=== PATIENT | male | born 1965 | race Caucasian/White ===

== ENCOUNTER 2021-01-12 06:41 | Day surgery (SDC) | payer MEDICAID ==
[~2021-01-12] VITALS: Ht 172.7 cm; Wt 95.8 kg
[2021-01-12] VITALS (12 sets, daily range): BP systolic 88–120; BP diastolic 51–79
[~2021-01-12 06:41] MED LIST: ASPI-611 PO; ATOR20TA66 PO; METO-395 PO; OMEP-50 PO; TICA90TA PO
[2021-01-12] MEDS ORDERED: EZET10TA48 PO (07:08)
[2021-01-12] MEDS ORDERED: HYDR12.55 PO (07:08)
[2021-01-12] MEDS ORDERED: VALS40TA11 PO (07:08)
[2021-01-12] MEDS ORDERED: METO-384 PO (07:08)
[2021-01-12] MEDS ORDERED: TICA90TA2 PO (07:08)
[2021-01-12] MEDS ORDERED: ATOR-2 PO (07:09)
[2021-01-12 07:21] LABS: BASOPHILS % (AUTO) 0.9 % (0-1); EOSINOPHILS # (AUTO) 0.2 X10'3 (0-0.9); EOSINOPHILS % (AUTO) 3.5 % (0-6); HEMOGLOBIN 14.8 g/dl (14.0-17.9); LYMPHOCYTES # (AUTO) 1.3 X10'3 (1.1-4.8); LYMPHOCYTES % (AUTO) 26.3 % (21-51); MEAN CORPUSCULAR HEMOGLOBIN 31.1 PG (27.0-31.0); MEAN CORPUSCULAR HGB CONC 33.6 g/dL (33.0-36.5); MEAN CORPUSCULAR VOLUME 92.7 FL (78-98); MEAN PLATELET VOLUME 7.7 FL (7.4-10.4); MONOCYTES # (AUTO) 0.6 X10'3 (0-0.9); MONOCYTES % (AUTO) 11.3 % (2-12); NEUTROPHILS # (AUTO) 2.9 X10'3 (1.8-7.7); PLATELET COUNT 220 X10'3 (140-440); RED BLOOD COUNT 4.75 X10'6 (4.70-6.10); RED CELL DISTRIBUTION WIDTH 13.1 % (11.5-14.5); WHITE BLOOD COUNT 5.1 X10'3 (4.5-11.0)
[2021-01-12] MEDS ORDERED: normal saline 1,000 ML IV SCH (07:25)
[2021-01-12] MEDS ORDERED: diphenhydrAMINE 25mg capsule PO PRN (07:25)
[2021-01-12] MEDS ORDERED: LORazepam 0.5 MG tablet PO PRN (07:25)
[2021-01-12 07:33] LABS: ALBUMIN 3.6 G/DL (3.4-5.0); ANION GAP 9 (8-16); BLOOD UREA NITROGEN 24 MG/DL (7-18); BUN/CREATININE RATIO 21.8 (5.4-32.0); CALCIUM 9.1 MG/DL (8.5-10.1); CHLORIDE 105 MMOL/L (99-107); GLUCOSE 93 MG/DL (70-104); POTASSIUM 3.9 MMOL/L (3.5-5.1); SODIUM 141 MMOL/L (135-145); eGFR 70 ML/MIN
[2021-01-12 07:46] LABS: PARTIAL THROMBOPLASTIN TIME 24 SECONDS (22-32)
[2021-01-12] MEDS ORDERED: midazolam 1 mg/ML 2ml injection ONE (09:09)
[2021-01-12] MEDS ORDERED: fentaNYL/PF 50MCG/1 ML 2ML syringe ONE (09:09)
[2021-01-12] MEDS ORDERED: heparin 1,000unit/ml 10ml vial 10 ML ONE (09:10)
[2021-01-12] MEDS ORDERED: LIDOcaine 1% (10mg/ml)w/preservative injection 20ml MDV ONE (09:10)
[2021-01-12] MEDS ORDERED: IOHEXOL 350 MG/ML INFUS..BTL 75ML IV ONE (09:10)
[2021-01-12] MEDS ORDERED: nitroGLYCERIN-Tridil 50MG/D5W 250 ML IV ONE (09:10)
[2021-01-12] MEDS ORDERED: iohexol 350MG/ML 100ml bottle IV ONE ×2 (09:10→09:55)
--- NOTE | 2021-01-12 10:23 | NUR ---
Pt back in room, site stable, drsg CD&I. Will continue to monitor.
--- NOTE | 2021-01-12 12:00 | NUR ---
Pt ate 100% of lunch tray. Will continue to monitor.
== END 2021-01-12 17:10 | disposition home or self-care (01) ==
LOC: SSTAY O 06:41
PROVIDERS: ATTEND Internal Medicine Cardiovascular Disease
DX: R94.39 Abnormal result of other cardiovascular function study (principal); R53.83 Other fatigue; I25.10 Atherosclerotic heart disease of native coronary artery without angina pectoris; I25.82 Chronic total occlusion of coronary artery; I10 Essential (primary) hypertension; E78.5 Hyperlipidemia, unspecified; Z79.899 Other long term (current) drug therapy; Z95.5 Presence of coronary angioplasty implant and graft; Z79.82 Long term (current) use of aspirin; Z79.01 Long term (current) use of anticoagulants; Z80.9 Family history of malignant neoplasm, unspecified; Z82.49 Family history of ischemic heart disease and other diseases of the circulatory system
CPT/HCPCS: 36415; 76937; 80048; 85025; 85610; 85730; 93005; 93459; 99152; 99153; C1760; C1769; C1894; J1644; J2001; J2250; J3010; J7030; Q0163; Q9967; A4620; A6258; J3490

== ENCOUNTER 2025-08-23 07:23 | Inpatient (IN) | payer BC, SELFPAY ==
[~2025-08-23] VITALS: Ht 175.3 cm; Wt 104.8 kg
[~2025-08-23 07:23] MED LIST changes: +ATOR-2 PO; -ATOR20TA66 PO; +EZET10TA80 PO; +HYDR12.55 PO; +METO-384 PO; -METO-395 PO; -OMEP-50 PO; +OMEP20CA16 PO; -TICA90TA PO; +TICA90TA2 PO; +VALS40TA11 PO
--- NOTE | 2025-08-23 07:48 | Physician Documentation ---
History of Present Illness ~ Chief Complaint: Chest Pain Stated Complaint: CHEST PAIN Time Seen by MD: 07:33 HPI 59-year-old male with a history of CAD with a CABG as well as multiple stents presenting with acute onset chest pain that started about an hour prior to arrival. Patient states that he got up this morning to do his morning routine and noticed that he is having pain in the left side of his chest. The pain is about seven to 8/10 on intensity and does not radiate. States that it feels a lot like chest pains that he has had in the past. He otherwise denies any nausea, vomiting, shortness of breath or any other associated symptoms. The pa in has continued and has not resolved. Medication Reconciliation Allergies: Coded Allergies: No Known Allergies (Unverified , 02/19/20) Scheduled Ascorbic Acid (Vitamin C), 1 TAB PO DAILY, (Reported) Cholecalciferol (Vitamin D3) (Vitamin D3), 1 TAB PO DAILY, (Reported) Magnesium Gluconate (Magnesium Gluconate), 480 TAB PO BID, (Reported) [place]-3/Dha/Epa/Fish Oil (Fish Oil 1,000 mg Softgel), 1 CAP PO DAILY, (Reported) Omeprazole (Omeprazole), 1 CAP PO DAILY, (Reported) Valsartan (Valsartan), 1 TAB PO DAILY, (Reported) [Zinc Picolinate], 50 MG PO DAILY, (Reported) Discontinued Medications Aspirin (Aspir 81), 1 TAB PO DAILY, (Reported) Discontinued Reason: patient no longer taking Atorvastatin Calcium (Atorvastatin Calcium), 1 TAB PO DAILY, (Reported) Discontinued Reason: patient no longer taking Ezetimibe (Ezetimibe), 10 MG PO DAILY, (Reported) Discontinued Reason: patient no longer taking Hydrochlorothiazide (Hydrochlorothiazide), 1 TAB PO QAM, (Reported) Discontinued Reason: patient no longer taking Metoprolol Succinate (Metoprolol Succinate), 1 TAB PO DAILY, (Reported) Discontinued Reason: patient no longer taking Ticagrelor (Brilinta), 1 TAB PO BID, (Reported) Discontinued Reason: patient no longer taking Past Medical History Past Medical History: High Cholesterol, Hypertension, Myocardial Infarction Past Surgical History: noncontributory Alcohol Use: None Drug Use: none Lives with: Spouse Lives In: Home Review of Systems All Other Systems at this time: Reviewed and Negative Physical Exam Vital Signs: Temperature: 97.4, Heart Rate: 88, Respiratory Rate: 18, BP: 188/92, Pulse Oximetry: 97, Weight: 104.800 Oxygen Flow Rate: 0 Physical Exam I have reviewed the triage vitals. CONST: Well developed and well nourished. In no acute distress HENT: Head Atraumatic EYES: Pupils are equal, round and reactive to light. Normal conjunctiva NECK: Normal range of motion. Supple. CARDIO: Irregularly irregular rhythm. Normal rate. No murmurs, rubs, or gallops. S1, S2. PULM/CHEST: No respiratory distress. Lungs clear to auscultation. No wheeze ABD: Soft and nontender. Nondistended. Bowel sounds normal. No guarding. : Exam deferred MSK: No edema. No deformity. NEURO: Alert and oriented to person, place and time. Moving all extremities SKIN: Warm and dry. PSYCH: Normal mood and affect. Good eye contact. Progress Results/Orders Results/Orders Orders - ЕКАТЕРИНА PARMAR MD Chest,Single View (08/23/25 07:40) Monitor (08/23/25 07:25) Saline Lock (08/23/25 07:25) Oxygen (08/23/25 07:25) Nitroglycerin Sublingual Tab (Nitrostat (08/23/25 07:45) Heparin 25,000 Unit/250ml Bag (Heparin 2 (08/23/25 09:50) Heparin 10,000 Unit/Ml 1ml (Heparin 10,0 (08/23/25 09:50) Cbc/Diff (08/24/25 03:00) Cbc/Diff (08/25/25 03:00) Cbc/Diff (08/26/25 03:00) Cbc/Diff (08/27/25 03:00) Cbc/Diff (08/28/25 03:00) Page Hospitalist (08/23/25 10:06) Fill Out Med Reconciliation (08/23/25 10:06) Completed Orders - ЕКАТЕРИНА PARMAR MD Chest,Single View (08/23/25 07:40) Electrocardiogram (08/23/25 07:25) Hs Troponin I W Calculations (08/23/25 09:25) Hs Troponin I W Calculations (08/23/25 10:25) Aspirin 81mg Chew Tablet (Aspirin 81mg C (08/23/25 07:45) Morphine 4mg/Ml Inj. (Morphine Inj.) (08/23/25 07:45) Hs Troponin I W Calculations (08/23/25 08:07) Cbc/Diff (08/23/25 08:07) BMP (08/23/25 08:07) MG (08/23/25 08:07) PBNP (08/23/25 08:07) Pt Inr (08/23/25 09:46) PTT (08/23/25 09:46) Heparin 10,000 Unit/Ml 1ml (Heparin 10,0 (08/23/25 09:50) Heparin 10,000 Unit/Ml 1ml (Heparin 10,0 (08/23/25 10:00) Clopidogrel Tablet (Plavix Tablet) (08/23/25 10:05) Electrocardiogram (08/23/25 ) Message To Nursing (08/23/25 10:05) Clopidogrel Tablet (Plavix Tablet) (08/23/25 10:25) Medications Received in ER Medications (Trade) Dose Ordered Sig/Loretta Route PRN Reason Start Time Stop Time Status Last Admin Dose Admin (Nitrostat SL tablet) 0.4 mg Q5M PRN SL Chest pain Q5min PRNx3-call 08/23/25 07:45 08/23/25 07:59 0.4 MG (aspirin 81MG chew tablet) 324 mg ONCE ONCE PO 08/23/25 07:45 08/23/25 07:46 DC 08/23/25 07:50 324 MG (morphine inj.) 4 mg ONCE ONCE IV 08/23/25 07:45 08/23/25 07:48 DC 08/23/25 08:06 4 MG Heparin Sodium/ Dextrose 250 ml @ 10 mls/hr Q25H PRN IV TO MAINTAIN PTT WITHIN RANGE 08/23/25 09:50 08/23/25 10:12 10 MLS/HR (heparin 10,000 unit/ml 1ml inj) 4,000 units ONCE ONCE IV 08/23/25 10:00 08/23/25 10:01 DC 08/23/25 10:03 4,000 UNITS (Plavix tablet) 300 mg ONCE ONCE PO 08/23/25 10:25 08/23/25 10:26 DC 08/23/25 10:24 300 MG (Lipitor tablet) 20 mg ONCE ONCE PO 08/23/25 10:40 08/23/25 10:54 DC 08/23/25 11:44 20 MG (Lopressor tablet) 25 mg ONCE ONCE PO 08/23/25 10:40 08/23/25 10:56 DC 08/23/25 11:44 25 MG Sodium Chloride 1,000 ml @ 100 mls/hr Q10H IV 08/23/25 10:40 08/23/25 11:44 100 MLS/HR Vital Signs 08/23/25 08/23/25 08/23/25 08/23/25 07:27 07:45 07:53 08:00 Temp 97.4 Pulse 18 88 Resp 20 18 B/P (MAP) 219/136 188/92 (124) 137/93 (108) Pulse Ox 98 97 O2 Flow Rate 0 0 08/23/25 08/23/25 08/23/25 08/23/25 08:10 08:37 08:44 08:57 Pulse 71 65 Resp 16 13 B/P (MAP) 106/77 (87) 116/78 (91) 133/91 (105) Pulse Ox 97 97 97 O2 Delivery Nasal Cannula* O2 Flow Rate 2.0 2 2.0 FiO2 28 Laboratory Tests Test 08/23/25 07:53 08/23/25 08:22 08/23/25 09:26 08/23/25 10:01 CBC Comment Chemistry Comments White Blood Count 5.2 Red Blood Count 5.08 Hemoglobin 15.8 Hematocrit 46.5 Mean Corpuscular Volume 91.5 Mean Corpuscular Hemoglobin 31.1 H Mean Corpuscular Hemoglobin Concent 34.0 Red Cell Distribution Width 14.3 Platelet Count 226 Mean Platelet Volume 8.4 Neutrophils (%) (Auto) 62.2 Lymphocytes (%) (Auto) 26.7 Monocytes (%) (Auto) 7.2 Eosinophils (%) (Auto) 3.2 Basophils (%) (Auto) 0.7 Neutrophils # (Auto) 3.3 Lymphocytes # (Auto) 1.4 Monocytes # (Auto) 0.4 Eosinophils # (Auto) 0.2 Basophils # (Auto) 0.0 Sodium Level 137 Potassium Level 4.0 Chloride Level 105 Carbon Dioxide Level 26.8 Anion Gap 5 L Blood Urea Nitrogen 20 H Creatinine 1.22 H Estimated GFR/1.73 m2 61 BUN/Creatinine Ratio 16.4 Glucose Level 127 H Calcium Level 8.6 Magnesium Level 2.1 Troponin I High Sensitivity 128 *H 460 *H Pro-B-Type Natriuretic Peptide 149 H Albumin 3.4 Prothrombin Time 10.9 INR International Normalized Ratio 1.1 Activated Partial Thromboplast Time 24 Coagulation Comments Test 08/23/25 10:40 Troponin I High Sensitivity 1066 *H Troponin I High Sens Percent Delta 131 Troponin I Hi Sens Absolute Change 606 EKG/XRAY/CT/US/VASC/MRI EKG : Additional Comment EKG 1. Interpreted by ED MD indicating normal sinus rhythm at 95 beats per minute, several PVCs, no ST elevations, normal axis EKG 2. Interpreted by ED MD indicating normal sinus rhythm at a rate of 64 beats per minute, normal axis, no ischemia Chest X-Ray : Additional Comments CHEST RADIOGRAPH Indication: CP Technique: Single frontal view of the chest was obtained Comparison: None FINDINGS: Lines and Tubes: None Lungs: There is bilateral interstitial prominence. No focal consolidation. Pleura: No effusion. No pneumothorax. Cardiomediastinal contours: Cardiomegaly. Bones: No acute osseous abnormality. Status post median sternotomy. IMPRESSION: 1. Cardiomegaly with mild pulmonary vascular congestion. Medical Decision Making Additional information obtaine: N/A Findings - Heart Score: 8 Differential Dx:Considerations: Include: angina, chest wall pain, costoc hondritis, myocardial infarction, pneumothorax, pulmonary embolus Additional Information 59-year-old male with a history of CAD presenting for an NSTEMI. The patient initially presented with significant chest pain. He was treated with 4 mg of IV morphine. Also given 325 mg of p.o. aspirin and received two rounds of sublingual nitroglycerin with complete resolution of his chest pain. Chest x- ray did indicate some cardiomegaly with some mild pulmonary congestion. EKG showed PVCs but no ST elevations. His troponin returned elevated at 128 in his 2nd troponin was further elevated greater than 400. I suspect the patient is likely having and not an ST-elevation myocardial infarction at this time. I consulted cardiology Dr. Finnegan who will see the patient. Patient will be admitted for further treatment and care. Departure Disposition: ADMITTED INPATIENT Admitted to Inpatient Unit: to hospitalist, to bilingual nanny Admission Level of Care: PCU with Tele Impression: Primary Impression: NSTEMI (non-ST elevated myocardial infarction) Condition: Critical Referrals: NO PRIMARY CARE PROVIDER (PCP) Critical Care Note Total Time (mins): 65 Critical Care Note The very real possibility of a deterioration of this patient's condition required the highest level of my preparedness for sudden, emergent intervention. I provided critical care services, which included medication orders, frequent reevaluations of the patient's condition and response to treatment, ordering and reviewing test results, and discussing the case with various consultants. Excludes time spent performing separately billable procedures. The critical care time associated with the care of the patient was. Signature Scribe Signature: 1 Attestation: 1 ЕКАТЕРИНА PARMAR MD Aug 23, 2025 07:48
[2025-08-23] MEDS: morphine 4 MG/ML inj SYRINge IV ONE (08:06)
[2025-08-23] MEDS ORDERED: ZINC PICOLINATE PO (08:46)
[2025-08-23] MEDS ORDERED: MAGN500T9 PO (08:46)
[2025-08-23] MEDS ORDERED: CHOL20003 PO (08:46)
[2025-08-23] MEDS ORDERED: OMEG100037 PO (08:46)
[2025-08-23] MEDS ORDERED: ASCO10004 PO (08:46)
--- NOTE | 2025-08-23 09:10 | RADIOLOGY REPORT ---
CHEST RADIOGRAPH Indication: CP Technique: Single frontal view of the chest was obtained Comparison: None FINDINGS: Lines and Tubes: None Lungs: There is bilateral interstitial prominence. No focal consolidation. Pleura: No effusion. No pneumothorax. Cardiomediastinal contours: Cardiomegaly. Bones: No acute osseous abnormality. Status post median sternotomy. IMPRESSION: 1. Cardiomegaly with mild pulmonary vascular congestion.
[2025-08-23 09:12] LABS: MEAN PLATELET VOLUME 8.4 FL (7.4-10.4); RED CELL DISTRIBUTION WIDTH 14.3 % (11.5-14.5)
[2025-08-23 09:36] LABS: CREATININE 1.22 MG/DL (0.60-1.10); PRO BRAIN NATRIURETIC PEPTIDE 149 PG/ML (0-125); TOTAL CARBON DIOXIDE 26.8 MMOL/L (24-32); eCRCL 66 ML/MIN; eGFR 61 ML/MIN
[2025-08-23] MEDS: heparin 10,000 units/1 ML INJ IV ONE ×2 (10:03→10:13)
[2025-08-23] MEDS: heparin 25,000 UNIT/250ml bag 250 ML IV PRN (10:12)
--- NOTE | 2025-08-23 10:20 | ELECTROCARDIOGRAPH REPORT ---
[facility] Test Date: 2025-08-23 Test Time: 10:18:11 Pat Name: RIKKI ARROYO Department: [facility]- Patient ID: [facility]-[id number] Room: [place] [address] Gender: M Clothes Shaker: : 1965 Requested By: ЕКАТЕРИНА PARMAR Order Number: [id number] Reading MD: Dr. Jefferson Vanessa Measurements Intervals [place] Rate: 64 P: 34 ID: [id number] QRS: 28 QRSD: 99 T: 162 QT: 422 QTc: 436 Interpretive Statements Sinus rhythm Inferoposterior infarct, old Lateral leads are also involved Electronically Signed On 08-25-2025 20:43:[address] Jefferson Vanessa Please click the below link to view image of tracing.
[2025-08-23 10:21] LABS: INR 1.1 INR
[2025-08-23] MEDS: clopidogrel 300mg tablet PO ONE (10:26)
[2025-08-23] MEDS ORDERED: HYDROcodone/acetaminophen 5mg/325mg tablet PO PRN (10:40)
[2025-08-23] MEDS ORDERED: potassium Cl 20 mEq SR tablet PO PRN ×2 (10:40)
[2025-08-23] MEDS: PERFLUTREN PROTEIN-A MICROSPHR (Optison) 0.22 MG/ML 3ML VIAL IV ONE (10:40)
[2025-08-23] MEDS ORDERED: mag hydrox/Alum hydrox/simeth 30ml oral suspension PO PRN (10:40)
[2025-08-23] MEDS ORDERED: ondansetron/PF 4mg/2ml inj IV PRN (10:40)
[2025-08-23] MEDS ORDERED: HYDROcodone/acetaminophen 10/325mg tab PO PRN (10:40)
[2025-08-23] MEDS ORDERED: magnesium sulf-water 4G/100mL 100 ML IV PRN (10:40)
[2025-08-23] MEDS ORDERED: potassium Cl 40MEQ/1/2NS 520ml 520 ML IV PRN (10:40)
[2025-08-23] MEDS ORDERED: magnesium sulf-water 2g/50mL 50 ML IV PRN (10:40)
[2025-08-23] MEDS ORDERED: magnesium hydroxide 30ml (MOM) UD suspension PO PRN (10:40)
[2025-08-23] MEDS: MESSAGE TO NURSING IV ONE ×2 (10:41→16:52)
[2025-08-23 10:43] LABS: APTT 24 SECONDS (22-32)
--- NOTE | 2025-08-23 11:12 | ELECTROCARDIOGRAPH REPORT ---
[facility] Test Date: 2025-08-23 Test Time: 19:33:07 Pat Name: RIKKI ARROYO Department: EMERGENCY ROOM Room: [place] [address] Gender: M Flight Dispatcher: ARCELIA : 1965 Requested By: ЕКАТЕРИНА PARMAR Order Number: [id number] Reading MD: Dr. Jefferson Vanessa Measurements Intervals [place] Rate: 95 P: 48 OK: 117 QRS: 44 QRSD: 103 T: 0 QT: 382 QTc: 481 Interpretive Statements Sinus rhythm Ventricular bigeminy Borderline short OK interval Consider inferoposterior infarct Probable anterolateral infarct, old Electronically Signed On 08-25-2025 20:43:[address] Jefferson Vanessa Please click the below link to view image of tracing.
[2025-08-23] MEDS: normal saline 1000ml 1,000 ML IV SCH (11:44)
[2025-08-23] MEDS ORDERED: LIDOcaine 1% (10mg/ml) 2ml vial ONE (12:24)
[2025-08-23] MEDS ORDERED: LIDOcaine 1% 30ml preserv. free vial ONE (12:27)
[2025-08-23 15:16] VITALS: RESP 18; O2SAT 98
[2025-08-23 15:19] VITALS: BP 134/114; PULSE 65; RESP 18; TEMP 97.8; O2SAT 98
[2025-08-23] MEDS: heparin 10,000 units/1 ML INJ IV PRN (16:46)
--- NOTE | 2025-08-23 16:56 | HISTORY AND PHYSICAL ---
History & Physical Providers to CC ~ History of Present Illness Reason for Admit\Complaint: NSTEMI History of Present Illness This is a 59-year-old male who has a history of CABG as well as multiple cardiac stents placed his last cardiac catheterization was 01/12/[address] Justin. The patient has moved out of the area and has not seen Dr. Jing sears couple of years presents to ED today with chest pain that woke him up out asleep at 06:00 . the pain progressively worsened to the point where it was seven to 8/10 substernal felt like significant heartburn he was mildly short of breath mildly nauseated as well there was no radiation of the pain the patient's drove him to the ED and the patient was promptly given two nitroglycerin tablets for which his chest pain resolved this was at 07:30. The patient has been chest pain-free since receiving nitroglycerin. His initial high sensitivity troponin was 128 this has been up trending in the 4th high sensitivity troponin is 5334. The patient was given 300 mg of Plavix in the ED is on heparin drip was given 25 mg of metoprolol tartrate and 20 mg of the atorvastatin. Dr. Justin has consulted on the patient and requested the patient be NPO after midnight for a cardiac catheterization tomorrow at 08:00 a.m. Allergies: Coded Allergies: No Known Allergies (Unverified , 02/19/20) Home Medications Home Medications Active Reported Fish Oil 1,000 mg Softgel ([place]-3/Dha/Epa/Fish Oil) 1,000 Mg (120 Mg-180 Mg) Capsule 1 Cap PO DAILY 30 Days [Zinc Picolinate] 50 Mg PO DAILY Vitamin D3 (Cholecalciferol (Vitamin D3)) 50 Mcg (2000 Unit) Tablet 1 Tab PO DAILY 30 Days Vitamin C (Ascorbic Acid) 1,000 Mg Tablet 1 Tab PO DAILY 15 Days DIRECTED Magnesium Gluconate 27 Mg Magnesium (500 Mg) Tablet 480 Tab PO BID 30 Days Valsartan 40 Mg Tablet 1 Tab PO DAILY Omeprazole 20 Mg Capsule.dr 1 Cap PO DAILY 30 Days Past Medical History Past Medical History Coronary artery disease/myocardial infarction Past Surgical History Surgical History Comment 2 vessel CABG, coronary angiogram with stenting mid circumflex artery Family History Family History: FH myocardial infarction male first degree age known FATHER FH: congestive heart failure Maternal grandmother FH: rheumatic fever MOTHER Past Social History Social History Comment Patient denes history of smoking/ drinking alcohol nor any illicit drug use Full Code Status ROS ROS Except for positives in the HPI the rest of the 14 point review systems is negative Exam Vitals: Vital Signs Date Time Temp Pulse Resp B/P (MAP) Pulse Ox O2 Delivery O2 Flow Rate FiO2 08/23/25 15:19 97.8 65 18 134/114 (121) 98 Nasal Cannula 2.0 08/23/25 12:36 28 General: Gen. No acute distress alert and oriented 4 Lungs clear to ascultation bilaterally, no wheezes rales or rhonchi appreciated Heart normal sinus rhythm no murmurs rubs or clicks noted Abdomen soft nontender bowel sounds are normoactive Lower extremities no clubbing cyanosis, nor edema appreciated bilaterally Diagnostic Data Last Recorded Lab Results: 08/23/25 [id number] Diagnostic Data: Laboratory Tests Test 08/23/25 10:01 08/23/25 16:02 Prothrombin Time 10.9 SECONDS (9.0-12.0) INR International Normalized Ratio 1.1 INR Activated Partial Thromboplast Time 24 SECONDS (22-32) APTT (Heparin Protocol) 40 SECONDS (45-60) L Coagulation Comments Advance Care Planning Advanced Care plannin - 30 Minutes Problems: (1) NSTEMI (non-ST elevated myocardial infarction) Status: Acute Additional Plan # NSTEMI Received 300 mg of Plavix p.o. in the ED On a heparin drip 20 mg of atorvastatin 25 mg of p.o. metoprolol tartrate Echocardiogram has been obtained awaiting preliminary report Dr. Justin medical dosimetrist recommended NPO after midnight and a cardiac catheterization is scheduled for tomorrow 08:00.- no further trending of troponins as this would not change the management of this patient and will likely continue to up trend. Fasting lipid panel On a riffler tender # coronary artery disease # history of mi History of CABG History of coronary angiogram with stenting # mild kidney disease likely an WILLIAMS Continue to monitor daily labs IV normal saline at 100 mL an hour I spent a total of 17 minutes on reviewing various resuscitative measures/ ACP with the patient at the time of admission. The patient has decided on full code status Date of Service: Aug 23, 2025 Billing Provider: MARILYN PRESTON DO Common Visit Codes: 99898-MLITUDT INP/OBS CARE (HIGH) Secondary Visit Codes: 76444-VOSYCRUZ CARE PLAN 30 MINUTES MARILYN PRESTON DO Aug 23, 2025 16:56
[2025-08-23 18:40] VITALS: BP 167/97; PULSE 71; RESP 20; TEMP 97.4; O2SAT 97
[2025-08-23 19:00] VITALS: BP 167/97; PULSE 71; RESP 20; TEMP 97.4; O2SAT 97
[2025-08-23] MEDS: K and/or MAG REPLACEMENT MC SCH (19:07)
[2025-08-23] MEDS: docusate sod 100mg capsule PO SCH (19:22)
[2025-08-23] MEDS ORDERED: MAGNESIUM GLUCONATE PO SCH (20:00)
[2025-08-23 22:00] VITALS: BP 128/79; PULSE 56; RESP 15; TEMP 98; O2SAT 99
[2025-08-24] VITALS (7 sets, daily range): BP systolic 103–151; BP diastolic 54–81; PULSE 54–108; RESP 11–20; TEMP 97.3–99; O2SAT 96–99
[2025-08-24] MEDS ORDERED: heparin 25,000 UNIT/250ml bag 250 ML IV PRN (00:20)
[2025-08-24 05:54] LABS: MEAN PLATELET VOLUME 8.2 FL (7.4-10.4); RED CELL DISTRIBUTION WIDTH 14.0 % (11.5-14.5)
[2025-08-24 06:12] LABS: CHOL/HDL RATIO 5.2 (0.00-4.99); CREATININE 1.05 MG/DL (0.60-1.10); LDL CHOLESTEROL 181 MG/DL (50-100); TOTAL CARBON DIOXIDE 27.7 MMOL/L (24-32); eCRCL 76 ML/MIN; eGFR 72 ML/MIN
[2025-08-24] MEDS: MESSAGE TO NURSING IV ONE (06:35)
[2025-08-24] MEDS: OMEGA-3/DHA/EPA/FISH OIL 1 EACH CAPSULE.DR PO SCH (07:34)
[2025-08-24] MEDS: cholecalciferol (vitamin D3) 1,000 unit (25mcg) tablet PO SCH (07:34)
[2025-08-24] MEDS ORDERED: midazolam 1 mg/ML 2ml injection ONE (07:34)
[2025-08-24] MEDS ORDERED: fentaNYL/PF 50MCG/1 ML 2ML syringe ONE (07:34)
[2025-08-24] MEDS: pantoprazole 40mg Tablet.DR PO SCH (07:34)
[2025-08-24] MEDS ORDERED: LIDOcaine 1% (10mg/ml) 2ml vial ONE (07:34)
[2025-08-24] MEDS ORDERED: verapamil 2.5 mg/ml inj IV ONE (07:34)
[2025-08-24] MEDS ORDERED: heparin 1,000unit/ml 10ml vial 10 ML ONE (07:35)
[2025-08-24] MEDS ORDERED: iohexol 350 MG/ML 50ML vial IV ONE ×2 (07:35→09:16)
[2025-08-24] MEDS ORDERED: nitroGLYCERIN 500mcg/5mL D5W 5 ML IV ONE ×2 (07:35→09:23)
[2025-08-24] MEDS ORDERED: heparin 25,000 UNIT/250ml bag 250 ML IV ONE (07:50)
[2025-08-24] MEDS ORDERED: ZINC PICOLINATE PO SCH (08:00)
[2025-08-24] MEDS ORDERED: LIDOcaine 1% 30ml preserv. free vial ONE (08:59)
--- NOTE | 2025-08-24 10:20 | ELECTROCARDIOGRAPH REPORT ---
[facility] Test Date: 2025-08-24 Test Time: 10:18:27 Pat Name: RIKKI ARROYO Department: [facility] Room: [place] [address] A Gender: M Family Resource Management Specialist: NICHOLE : 1965 Requested By: JOSE JUSTIN Order Number: [id number] Reading MD: Dr. SHIRA Justin Measurements Intervals [place] Rate: 68 P: 49 HI: 131 QRS: 41 QRSD: 94 T: 159 QT: 440 QTc: 469 Interpretive Statements Sinus rhythm Ventricular trigeminy Probable left atrial enlargement Inferoposterior infarct, old Lateral leads are also involved Baseline wander in lead(s) V1 Electronically Signed On 08-24-2025 17:49:[address] SHIRA Justin Please click the below link to view image of tracing.
--- NOTE | 2025-08-24 12:17 | CARDIOLOGY REPORT ---
DATE OF SERVICE: 08/24/2025 DICTATING PHYSICIAN: SHIRA Justin MD DATE OF PROCEDURE: 08/24/2025 INDICATION: The patient is a 60-year-old male with a history of hypertension, hyperlipidemia, CAD, CABG, and prior history of stenting. History of CABG goes back to 2009 when he had CABG x 2 in [facility]. At that time, he had a BURDEN to the LAD and a saphenous vein graft to the PDA. The patient apparently required stenting of his circumflex artery in 2014. Subsequently, he was seen by me in 2019 at [facility]. At that time, he had a [id number] NV, requiring 2.5 and 01/03 Resolute Farnam stent in an overlapping fashion posterior to 3 mm. Then he had reevaluation in 2020 and the stents were still patent. Now he has presented with an [id number]-CE-yjxfkxrvv NV with elevated troponin above 5000. After discussing risks, benefits and alternative option of the patient undergoing coronary angiography. Risks, benefits, and alternative options discussed. Informed consent obtained. PROCEDURE TECHNIQUE: The patient first underwent a diagnostic coronary angiography from left radial approach via 6-Malay radial sheath. Post-procedure, access site hemostasis secured with left radial band. However, we attempt to engage the left main with a guide unsuccessful. XBC 3.5, XBC 3.5, 3.5, XBC 3, and XB LAD 3.5, guides were tried because of the tortuosity. It was finally decided to change to the right femoral approach. right femoral access was obtained under ultrasound guidance and site closed with Perclose at the completion of the procedure.. The patient tolerated the procedure well. COMPLICATIONS: None. PROCEDURES DONE: * Ultrasound-guided right radial artery and right femoral artery visualization access. * Left heart catheterization.. * LVG. * Coronary cineangiography. * BURDEN injection. * Graft cineangiography. * PTCA stenting of the OM system. * Conscious sedation for 75 minutes. MANUAL TESTER: SHIRA Justin MD FINDINGS: HEMODYNAMICS: Aortic systolic 130, diastolic 85, mean 107 mmHg. LVEDP of 10 mmHg with no gradient across the aortic valve. LEFT VENTRICULOGRAM: Overall left ventricular systolic function is about 55% with inferobasal hypokinesia. CORONARY CINEANGIOGRAPHY: The left main coronary artery is a large caliber vessel arising from the left aortic sinus and has ieisoh-vt-dbpuf calibre,has mild narrowing. LAD is 100% proximally. Circumflex artery is a medium caliber vessel arising at the bifurcation of left main coronary artery and has a 98% narrowing before it becomes OM3. OM1 is 1.5 mm with moderate disease. OM2 is 2 mm caliber with mild luminal irregularities. OM3 is 2.75 mm caliber with mild luminal irregularities. Right coronary artery is 100% occluded proximally. Two of two grafts were patent. Free radial graft to the distal PDA is patent. Normal distal anastomosis. It fills up the PDA antegrade and _retrograde fashion. There were mild luminal irregularities. BURDEN to the LAD is patent. I engaged with JR4 catheter from left radial approach tortuous and normal distal anastomosis. Soon after the anastomosis, the patient has about 30% to 40% narrowing. PTCA STENTING OF THE DISTAL CIRCUMFLEX: As I mentioned earlier, left radial access could not engage the left main coronary artery. We were able to engage left main from right femoral approach 6-Malay XP 3.5, XPC guide. Lesion crossed with PT2 marked wire. Lesion angioplastied with a 2.5/12 mm semi-compliant balloon at 12 atmospheres. Subsequently, the lesion was stented with a 2.75/18 Resolute Farnam stent deployed at 12 atmospheres. Proximal two-third of the stent was postdilated with a 3 mm NC balloon. Proximal prior stents were dilated to 16 atmospheres. Post-procedure, 0% with ZANA 3 flow. The patient tolerated the procedure well. Complications none. IMPRESSION: A 60-year-old with LVEF of 55% to 60%, proximal inferobasal hypokinesia. LVEDP of 10 mmHg with no gradient across the aortic valve. Left main mild narrowing. LAD 100% occluded. Circumflex distally 98% narrowing beyond distal to the prior stent, successfully angioplastied and stented with an overlapping stent at 2.75 x 18, post dilated to 3 mm. RCA 100% occluded. Two out of four grafts patent namely BURDEN to the LAD patent. LAD 40% narrowing beyond the distal anastomosis. SVG radial graft to PDA patent. RECOMMENDATIONS: Continued aggressive coronary risk factor modification namely low-fat, low-cholesterol diet maintaining ideal body weight, keeping LDL less than 55 mg/dL and regular exercise program. SHIRA Justin MD TID: [id number] RECEIPT: [id number] MELISSA/MILTON MATHIS
--- NOTE | 2025-08-24 14:18 | CONSULTATION REPORT - RESIDENT ---
Consult Providers to CC Resident Creating Document: VETO BORJA JUNIE RIVERA History of Present Illness Reason for Admit\Complaint: Chest pain, NSTEMI History of Present Illness Cardiology consultation note: 59 years old male with past medical history of hypertension, hyperlipidemia coronary artery disease status post CABG and multiple stenting in the past presented to the ED with chief complaint of chest pain, on the left side of the chest that woke him up from his sleep. He reported that the chest pain worsened progressively and rated it eight on a scale of 10. Denied any radiation. Mentioned that the chest pain was similar to his past chest pains. The patient was brought into the ED and was treated with a nitroglycerin which relieved it the patient's chest pain. The patient's initial EKG was negative for any acute ST segment elevation SD. He had elevated troponin of 128 initially which on serial trending went up as high as 5334. The cardiology team was consulted in view of the patient's underlying NSTEMI. Patient was taken to cardiac catheterization today in the morning and had PTCA with a stenting of the OM. The patient tolerated the procedure well. He denied any new concerns or complaints. He denied any chest pain, shortness of breath, nausea, vomiting, palpitations, abdominal pain at the moment. Allergies: Coded Allergies: No Known Allergies (Unverified , 02/19/20) Home Medications Home Medications Active Reported Fish Oil 1,000 mg Softgel ([place]-3/Dha/Epa/Fish Oil) 1,000 Mg (120 Mg-180 Mg) Capsule 1 Cap PO DAILY 30 Days [Zinc Picolinate] 50 Mg PO DAILY Vitamin D3 (Cholecalciferol (Vitamin D3)) 50 Mcg (2000 Unit) Tablet 1 Tab PO DAILY 30 Days Vitamin C (Ascorbic Acid) 1,000 Mg Tablet 1 Tab PO DAILY 15 Days DIRECTED Magnesium Gluconate 27 Mg Magnesium (500 Mg) Tablet 480 Tab PO BID 30 Days Valsartan 40 Mg Tablet 1 Tab PO DAILY Omeprazole 20 Mg Capsule. 1 Cap PO DAILY 30 Days Past Medical History Past Medical History Coronary artery disease status post CABG, stenting Hypertension Hyperlipidemia Past Surgical History Surgical History Comment Two vessel [id number] to LAD and saphenous graft to PDA Stenting left circumflex in 2014 Stenting 2020 Family History Family History: FH myocardial infarction male first degree age known FATHER FH: congestive heart failure Maternal grandmother FH: rheumatic fever MOTHER Past Social History Social History Comment Denies smoking, alcohol or recreational drug use. Lives at home. ROS ROS As stated above in the HPI, otherwise all systems are reviewed and negative. Exam Vitals: Vital Signs Date Time Temp Pulse Resp B/P (MAP) Pulse Ox O2 Delivery O2 Flow Rate FiO2 08/24/25 11:00 99.0 72 11 124/76 (92) 98 Room Air 08/24/25 02:00 0.0 21 General: General: Awake and Alert, no acute distress. HEENT: Conjunctiva pink, Sclera clear, Mucus Membranes moist. Neck: Supple without masses and tenderness. Resp: Unlabored. Lungs clear to auscultation bilaterally. Heart: Regular Rate and rhythm, normal S1 and S2 without murmur, rub or gallop. Abdomen: Soft and non tender no organomegaly Extremities: No cyanosis,clubbing or edema. Skin: Warm and Dry. Neurology: Cranial nerves 2-12 intact. No focal motor or sensory deficits. Musculoskeletal: No deformities. Psychiatric: Normal mood and affect. Diagnostic Data Last Recorded Lab Results: 08/24/2552008/24/25520 Diagnostic Data: Laboratory Tests Test 08/23/25 10:01 08/24/25 05:21 08/24/25 10:33 Prothrombin Time 10.9 SECONDS (9.0-12.0) INR International Normalized Ratio 1.1 INR Activated Partial Thromboplast Time 24 SECONDS (22-32) APTT (Heparin Protocol) 52 SECONDS (45-60) Coagulation Comments Activated Clotting Time 216 SEC (101-148) H Additional Plan Cardiology consultation note: 1. NSTEMI Status post CABG X 2 (2009), stenting (2014,2019). EKG negative for any acute ST segment elevations. Serial trending of troponin-128, 460, 1066, 5334. Was started on IV heparin drip. Patient underwent cardiac angiography today with stenting of the OM with es stent. Preliminary echocardiogram showing ejection fraction of 50-55%. Started the patient on Brilinta 180 mg followed by 90 mg b.i.d., aspirin 81 mg daily. Continue losartan 25 mg p.o. daily. Start the patient on beta charu once vitals stabilizes. Starting atorvastatin 80 mg p.o. daily. LDL goal to be less than 55. Continue aggressive coronary risk factor modification. Continue telemetry monitoring. 2. Hypertension Hyperlipidemia Patient is on valsartan 40 mg at home. Currently started on losartan 25 mg p.o. daily. LDL-181, total cholesterol 228, triglycerides 85. Started atorvastatin 80 mg p.o. daily. Recommended aggressive coronary risk factor modification such as daily exercise, low carb diet. Continue monitoring the patient's vitals closely. Recommended starting beta charu once vitals stabilize. CODE STATUS: Full code DVT prophylaxis: IV heparin GI prophylaxis: None Diet: Heart healthy diet Disposition: Continue medical management. Recommend aggressive coronary risk factor modification. Continue management as per the primary care team. Veto Borja MD Internal Medicine Resident, PGY-3 Date of Service: Aug 24, 2025 Billing Provider: JOSE PABON MD,VETO RIVERA, RES Aug 24, 2025 14:18
--- NOTE | 2025-08-24 14:32 | CONSULTATION ---
DATE OF CONSULTATION: 08/23/2025 DICTATING PHYSICIAN: SHIRA Justin MD CARDIOLOGY CONSULTATION REQUESTING PHYSICIAN: Dr. Ivory. IDENTIFICATION: A 59-year-old male with chest pain, elevated troponin. HISTORY OF PRESENT ILLNESS: The patient is a 59-year-old male with history of hypertension, hyperlipidemia, CAD, status post CABG and subsequent stenting. He was last seen in my office on 06/24/2020. His first evaluation goes back to his history of hypertension, CAD. His CABG tends to was back in 2009 from [facility] in [place]. At that time, he received BURDEN to LAD and free radial graft to the left side with PDA. In 2014, the patient had stenting of his circumflex artery and he did not remember the details about that stent. His next evaluation was on 02/19/2020 small non-ST elevation [place]. Angiography at that time showed EF of 68%, LVEDP of 11 mmHg with no gradient across the aortic valve. LAD 100% occluded thrombotic occlusion inside the stent. patent and BURDEN to LAD patent. Free radial graft with PDA. was also patent. The patient had a successful angioplasty and stenting of the mid to distal circumflex artery . using 2.5 cm Resolute Irwin stent and 3/15 mm Irwin stent in overlapping fashion. Proximal two-third of the stent segment was post dilated to 3 mm with ZANA 3 flow. The patient did well. The patient's next evaluation was back on 2020 and at that time it was probably unstable angina. At that time, EF was 60% and again his LAD 100% circ stent was patent very distal portion of the OM, which was 1.25 mm with 70% narrowing or 100% occluded. Two of the two grafts were patent mainly BURDEN to LAD and radial graft to the PDA. Subsequently, it looks like the patient relocated to [facility] and then has had a followup with his primary care doctor [place]. He does not recall seeing any heel cutter. He says that all his medications were discontinued namely aspirin, Zetia, atorvastatin. He is currently taking only valsartan. Generally, he says he exercises about 20 to 30 minutes 5 days a week. Did not have any angina. No chest pain, palpitations or syncopal episodes. No history of rheumatic heart disease. This morning, he woke up and started having chest pain around 7:00 at 8/10. He came to the emergency room, was given sublingual nitroglycerin x 2 and the pain gradually resolved. He did not have any ST elevation and his troponin 1000 range. The patient was hospitalized by ER physician, subsequently by Dr. Ivory, put on aspirin, beta-charu, statins, and cardiology consult was requested. PAST MEDICAL HISTORY: Hypertension, hyperlipidemia, CAD, CABG, subsequent stenting, occasional snoring, possible sleep apnea. PAST SURGICAL HISTORY: CABG x2 subsequent stenting. FAMILY HISTORY: Father at age 50 because of heart attack. Mother at age 70 because of cancer. Sister is alive. SOCIAL HISTORY: The patient has no history of tobacco or alcohol intake. The patient is and lives with his . 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 MEDICATIONS: At home, ascorbic acid, vitamin D3, magnesium, omega-3, omeprazole, valsartan. REVIEW OF SYSTEMS: HEENT: Wear glasses. Mild hearing impairment. RESPIRATORY: Exertional shortness of breath. MUSCULOSKELETAL: No arthralgia. CENTRAL NERVOUS SYSTEM: No stroke, TIA or seizure. PSYCHIATRIC: Depression. SKIN: None. ENDOCRINE: None. PHYSICAL EXAMINATION: GENERAL: On examination, the patient is a 59-year-old male, conscious, alert and oriented, comfortable at rest. at bedside. VITAL SIGNS: Pulse 60, blood pressure 130/70. NECK: No JVD. Carotids are equally well felt. CARDIAC: Regular rate and rhythm. S1, S2 normal. No S3, S4 or murmurs. LUNGS: Clear auscultation bilaterally. ABDOMEN: Soft, nontender, nondistended. Bowel sounds present. EXTREMITIES: No edema, cyanosis or clubbing. CENTRAL NERVOUS SYSTEM: No lateralizing signs. EKG: Normal sinus rhythm. The patient has nonspecific ST-T changes. LABORATORY DATA: Include WBC of 5.2, hemoglobin 15.8, hematocrit 46.5, platelet count 226. Sodium 137, potassium 4, chloride 105, carbon dioxide 27, BUN 20, creatinine 1.22. Pro-BNP 149. Troponin 128 and then become 460. ASSESSMENT AND PLAN: 1. A 59-year-old male with coronary artery disease, CABG x 2 with BURDEN to LAD and free radial graft to posterior descending artery, stenting of mid circumflex and obtuse marginal in [place] once and subsequently work in 2019 with 2.5/ and 3/15 in an overlapping fashion. Now having a non-ST elevation myocardial infarction. Continue aspirin, Plavix, beta-blockers, and heparin. Option of further evaluation for angiography versus medical perfusion. Risks, benefits and alternative options were discussed with the patient. The patient mutually agreed to proceed with coronary angiography. 2. Hypertension, hyperlipidemia, extensive coronary risk factor modification regular exercise program. SHIRA Justin MD TID: [id number] RECEIPT: [id number] MELISSA/JUAN/NORA MTDD
--- NOTE | 2025-08-24 16:29 | PROGRESS NOTE ---
Daily Progress Note Providers to CC ~ Antibiotic Timeout Antibiotic Ordered?: No Subjective No new complaints. Patient is seen resting comfortably. Objective Vital Signs Date Time Temp Pulse Resp B/P (MAP) Pulse Ox O2 Delivery O2 Flow Rate FiO2 08/24/25 11:00 99.0 72 11 124/76 (92) 98 Room Air 08/24/25 02:00 0.0 21 Result Diagram: 08/24/25 0521 08/24/25 0521 Gen. awake alert oriented asymptomatic HEENT: Normocephalic, atraumatic, pupils round reactive to light and accommodation, extraocular movements are intact, sclera anicteric, conjunctiva pinkish, moist oral mucosa, no rash or ulcers. NECK: Supple, no JVD, trachea midline. CHEST: Clear to auscultation, no wheezes crackles or rhonchi. HEART: Regular rate rhythm, no murmur gallop or rub. ABDOMEN: Soft, nontender, no organomegaly. EXTREMITIES: No cyanosis clubbing or edema. NEURO EXAM: Grossly nonfocal. MUSCULOSKELETAL : No joint swelling or deformities. SKIN: No rash or ulcers noted. Coagulation Studies Laboratory Tests Test 08/23/25 10:01 08/24/25 05:21 08/24/25 10:33 Prothrombin Time 10.9 SECONDS (9.0-12.0) INR International Normalized Ratio 1.1 INR Activated Partial Thromboplast Time 24 SECONDS (22-32) APTT (Heparin Protocol) 52 SECONDS (45-60) Coagulation Comments Activated Clotting Time 216 SEC (101-148) H Problem\Assessment\Plan Problems/Diagnosis: (1) NSTEMI (non-ST elevated myocardial infarction) LEAH JOYNER MD Aug 24, 2025 16:29
--- NOTE | 2025-08-24 17:47 | CARDIOLOGY REPORT ---
APPROVED REPORT EXAM: Comprehensive 2D, Doppler, and color-flow Echocardiogram. Patient Location: 3024 A Rhythm: SINUS BRADYCARDIA WITH PVC'S Indications MYOCARDIAL INFARCTION PBNP 149 TROPONIN 128, 460 Warehouse Inventory Clerk: MD Kendra Previous echo: 02/20/2020 EF 55%, LAE, RVE, Azra, trMR, trTR CABG x2 2010 STENTS x3 2020 2D Dimensions IVSd 1.1 (0.7-1.1cm) LVDd 5.1 cm PWd 1.1 (0.7-1.1cm) IVSs 1.2 (0.8-1.2cm) LVDs 4.0 (2.5-4.0cm) PWs 1.2 (0.8-1.2cm) LVOT Diameter 2.22 (1.8-2.4cm) LVEF(%) 42.4 (>50%) FS (%) 21.0 % SV 51.7 ml CO 2.9 L/min M-Mode Dimensions Left Atrium(MM) 4.72 (2.5-4.0cm) Aortic Root 2.97 (2.2-3.7cm) Aortic Cusp Exc 1.98 (1.5-2.0cm) Aortic Valve AoV Peak Caleb. 153.3 cm/s AoV VTI 27.1 cm AO Peak GR. 9.4 mmHg AO Mean GR. 4 mmHg LVOT VTI 22.73 cm LVOT Peak Caleb. 111.6 cm/s ULISES(VTI)/BSA 3.23 cm2/m2 ULISES (VTI) 3.23 cm2 AV DI 0.84 % Mitral Valve MV E Velocity 102.0 cm/s MV Peak Gr. 6 mmHg MV DECEL TIME 320 ms MV A Velocity 87.2 cm/s MV PHT 72 ms E/A Ratio 1.2 MVA (PHT) 3.06 cm2 MV VMax 118.1 cm/s Tricuspid Valve TR P. Velocity 260 cm/s RAP ESTIMATE 10 mmHg TR Peak Gr. 27 mmHg RVSP 37 mmHg LEFT VENTRICLE Normal LV size and wall thickness. Overall systolic function is mildly reduced. Inferior hypokinesia seen Overall LVEF is 50-55%. RIGHT VENTRICLE RV appears normal in size and function. Estimated PA systolic pressure of 37 mm of mercury. ATRIA Left atrium is moderately dilated. AORTIC VALVE Trileaflet AV appears mildly sclerotic without stenosis. Trace insufficiency. MITRAL VALVE Mild MV annular calcification without stenosis. Trace regurgitation. TRICUSPID VALVE TV appears structurally normal with trace regurgitation. PULMONIC VALVE Normal PV without stenosis, physiologic insufficiency. GREAT VESSELS The aortic root is normal in size. PERICARDIUM Normal pericardium. No effusion. Other Information Study Quality: Fair, difficult apical and subcostal window Conclusion Overall LVEF is 50-55%. Normal LV size and wall thickness. Overall systolic function is mildly reduced. Inferior hypokinesia seen RV appears normal in size and function. Estimated PA systolic pressure of 37 mm of mercury. Trileaflet AV appears mildly sclerotic without stenosis. Trace insufficiency. Mild MV annular calcification without stenosis. Trace regurgitation. TV appears structurally normal with trace regurgitation. Normal PV without stenosis, physiologic insufficiency. Normal pericardium. No effusion.
[2025-08-25 02:00] VITALS: BP 103/60; PULSE 85; RESP 12; TEMP 97.9; O2SAT 97
[2025-08-25 06:00] VITALS: BP 131/77; PULSE 80; RESP 16; TEMP 97.8; O2SAT 97
[2025-08-25 06:48] LABS: MEAN PLATELET VOLUME 8.1 FL (7.4-10.4); RED CELL DISTRIBUTION WIDTH 14.0 % (11.5-14.5)
[2025-08-25 07:26] LABS: CREATININE 1.15 MG/DL (0.60-1.10); TOTAL CARBON DIOXIDE 26.9 MMOL/L (24-32); eCRCL 69 ML/MIN; eGFR 65 ML/MIN
[2025-08-25 08:00] VITALS: RESP 16; O2SAT 99
--- NOTE | 2025-08-25 08:22 | ELECTROCARDIOGRAPH REPORT ---
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 SHIRA Justin Measurements Intervals [place] Rate: 86 P: 32 IL: 128 QRS: 41 QRSD: 98 T: 180 QT: 426 QTc: 510 Interpretive Statements Sinus rhythm Ventricular tachycardia, unsustained Inferior infarct, old Posterior infarct, recent Abnormal lateral Q waves Baseline wander in lead(s) V2 Electronically Signed On 08-25-2025 13:21:[address] SHIRA Justin Please click the below link to view image of tracing.
[2025-08-25 10:03] LABS: PRO BRAIN NATRIURETIC PEPTIDE 814 PG/ML (0-125)
--- NOTE | 2025-08-25 10:29 | PROGRESS NOTE- Residence ---
Progress Note - Resident Providers to CC Resident Creating Document: VETO BORJATIKJUNIE ~ Antibiotic Timeout Antibiotic Ordered?: No Subjective Patient is seen and examined at the bedside today. Denied any further episodes of chest pain. Currently denied any palpitations, shortness of breaths, dizziness, nausea, vomiting, abdominal pain, diarrhea. Patient reports that he has been walking around and able to tolerate it well. There were no acute overnight events reported. Objective Vital Signs Date Time Temp Pulse Resp B/P (MAP) Pulse Ox O2 Delivery O2 Flow Rate FiO2 08/25/25 07:23 80 08/25/25 02:00 97.9 12 103/60 (74) 97 Room Air 08/24/25 02:00 0.0 21 Result Diagram: 08/25/25 0558 08/25/25 0558 General: Awake and Alert, no acute distress. HEENT: Conjunctiva pink, Sclera clear, Mucus Membranes moist. Neck: Supple without masses and tenderness. Resp: Unlabored. Lungs clear to auscultation bilaterally. Heart: Regular Rate and rhythm, normal S1 and S2 without murmur, rub or gallop. Abdomen: Soft and non tender no organomegaly Extremities: No cyanosis,clubbing or edema. Skin: Warm and Dry. Neurology: Cranial nerves 2-12 intact. No focal motor or sensory deficits. Musculoskeletal: No deformities. Psychiatric: Normal mood and affect. Coagulation Studies Laboratory Tests Test 08/23/25 10:01 08/24/25 05:21 08/24/25 10:33 Prothrombin Time 10.9 SECONDS (9.0-12.0) INR International Normalized Ratio 1.1 INR Activated Partial Thromboplast Time 24 SECONDS (22-32) APTT (Heparin Protocol) 52 SECONDS (45-60) Coagulation Comments Activated Clotting Time 216 SEC (101-148) H Assessment Assessment 60 years old male with a past medical history hypertension, hyperlipidemia is admitted in the for evaluation and management of NSTEMI. Plan Plan Cardiology consultation note: 1. NSTEMI Status post CABG X 2 (2009), stenting (2014,2019). EKG negative for any acute ST segment elevations. Serial trending of troponin-128, 460, 1066, 5334. Was started on IV heparin drip. Patient underwent cardiac angiography yesterday with stenting of the OM with es stent. Preliminary echocardiogram showing ejection fraction of 50-55%. Started the patient on Brilinta 180 mg followed by 90 mg b.i.d., aspirin 81 mg daily. Continue losartan 25 mg p.o. daily. Started Coreg 3.125 mg b.i.d. Starting atorvastatin 80 mg p.o. daily. LDL goal to be less than 55. Continue aggressive coronary risk factor modification. Continue telemetry monitoring. The left radial and right groin wound were examined. Hemostasis achieved, no signs of bleeding, no bruits heard. 3. PVC EKG showing multiple paroxysmal ventricular contractions. Continue telemetry monitoring. No significant electrolyte abnormalities. Ordered one dose of 2 g of IV magnesium Started the patient on Coreg 3.125 mg b.i.d.. Hold Coreg for heart rate less than 50 beats per minute. 2. Hypertension Hyperlipidemia Patient is on valsartan 40 mg at home. Currently started on losartan 25 mg p.o. daily. LDL-181, total cholesterol 228, triglycerides 85. Started atorvastatin 80 mg p.o. daily. Recommended aggressive coronary risk factor modification such as daily exercise, low carb diet. Continue monitoring the patient's vitals closely. Started the patient on Coreg 3.125 mg b.i.d.. CODE STATUS: Full code DVT prophylaxis: IV heparin GI prophylaxis: None Diet: Heart healthy diet Disposition: Continue medical management. Recommended aggressive coronary artery disease risk modification. Educated the patient regarding the same. Educated the patient regarding the importance of following up in outpatient in the Cardiology Clinic for close follow up post discharge. The patient can be discharged home as per the primary care team. Veto Borja MD Internal Medicine Resident, PGY-3 Patient seen and examined by Dr. Esha LUJAN. Overall patient doing well. The importance of compliance with the medications and regular follow up emphasized to the patient Date of Service: Aug 25, 2025 Billing Provider: JOSE PABON MD, SURYA PRATIK, RES Aug 25, 2025 10:29 JOSE PABON MD Aug 25, 2025 13:28
[2025-08-25 11:00] VITALS: BP 116/61; PULSE 90; RESP 19; TEMP 96.9; O2SAT 96
[2025-08-25] MEDS: magnesium sulf-water 2g/50mL 50 ML IV ONE (13:39)
--- NOTE | 2025-08-25 14:35 | DISCHARGE SUMMARY ---
Discharge Summary Providers to CC ~ Discharge Summary Admission Diagnosis: NSTEMI Hospital Course DATE OF ADMISSION: DATE OF DISCHARGE: *Problems/Diagnosis: (1) NSTEMI (non-ST elevated myocardial infarction) Status: Acute LEAH JOYNER MD Aug 25, 2025 14:35
[2025-08-25] MEDS ORDERED: ATOR20TA66 PO (14:38)
[2025-08-25] MEDS ORDERED: NITR0.4T51 SL (14:38)
[2025-08-25] MEDS ORDERED: COR3.125T PO (14:38)
[2025-08-25] MEDS ORDERED: ASPI81TA53 PO (14:38)
[2025-08-25] MEDS ORDERED: TICA90TA PO (14:38)
== END 2025-08-25 16:45 | disposition home or self-care (01) | DRG 322 ==
LOC: ER 07:24 → ED HOLD 10:43 → PCU 3S 14:23
PROVIDERS: ADMIT Family Medicine; ATTEND Family Medicine
PROC: 027034Z Dilation of Coronary Artery, One Artery with Drug-eluting Intraluminal Device, Percutaneous Approach (ICD-10-PCS; principal; 2025-08-24)
PROC: 4A023N7 Measurement of Cardiac Sampling and Pressure, Left Heart, Percutaneous Approach (ICD-10-PCS; 2025-08-24)
PROC: B2111ZZ Fluoroscopy of Multiple Coronary Arteries using Low Osmolar Contrast (ICD-10-PCS; 2025-08-24)
PROC: B2151ZZ Fluoroscopy of Left Heart using Low Osmolar Contrast (ICD-10-PCS; 2025-08-24)
DX: I21.4 Non-ST elevation (NSTEMI) myocardial infarction (principal); N17.9 Acute kidney failure, unspecified; I10 Essential (primary) hypertension; E78.00 Pure hypercholesterolemia, unspecified; I25.10 Atherosclerotic heart disease of native coronary artery without angina pectoris; Z95.1 Presence of aortocoronary bypass graft; Z79.899 Other long term (current) drug therapy; I25.2 Old myocardial infarction; Z87.891 Personal history of nicotine dependence
CPT/HCPCS: 93306; 93459; 96365; 99291; C9600; 36415; 71045; 76937; 80048; 80053; 80061; 83735; 83880; 84484; 85025; 85347; 85610; 85730; 87081; 93005; 99152; 99153; A4615; A6258; A6449; C1725; C1751; C1760; C1769; C1874; C1894; G0378; J1200; J1644; J2003; J2250; J2270; J3010; J3490; J7030; Q9967